=== PATIENT | male | born 1940 | race African-American/Black ===

== ENCOUNTER 2019-03-19 12:57 | Emergency (ER) | payer MEDICAID ==
[~2019-03-19] VITALS: Ht 185.4 cm; Wt 81.6 kg
[~2019-03-19 12:57] MED LIST: NKM
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
[2019-03-19] MEDS ORDERED: Omnipaque-300 100ml vial INJ ONE (13:45)
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
[2019-03-19 15:12] LABS: BASOPHILS % (AUTO) 1.8 % (0.0-2.0); HEMATOCRIT 34.6 % (42.0-52.0); HEMOGLOBIN 11.8 G/DL (14.2-18.0); LYMPHOCYTES % (AUTO) 29.8 % (20.0-45.0); MEAN CORPUSCULAR VOLUME 97 FL (80-99); MONOCYTES % (AUTO) 10.1 % (1.0-10.0); NEUTROPHILS % (AUTO) 55.3 % (45.0-75.0); PLATELET COUNT 193 K/UL (150-450); RED BLOOD COUNT 3.55 M/UL (4.70-6.10); RED CELL DISTRIBUTION WIDTH 11.8 % (11.6-14.8)
[2019-03-19 15:27] LABS: INR 1.1 (0.9-1.1)
[2019-03-19 15:31] LABS: ANION GAP 6 mmol/L (5-15); BLOOD UREA NITROGEN 9 mg/dL (7-18); CALCIUM 8.5 MG/DL (8.5-10.1); CARBON DIOXIDE 28 MMOL/L (21-32); CHLORIDE 107 MMOL/L (98-107); CREATININE 0.9 MG/DL (0.55-1.30); POTASSIUM 3.8 MMOL/L (3.5-5.1); SODIUM 141 MMOL/L (136-145)
[2019-03-19 15:41] LABS: ALANINE AMINOTRANSFERASE 31 U/L (12-78); ALBUMIN 2.9 G/DL (3.4-5.0); ALBUMIN/GLOBULIN RATIO 0.9 (1.0-2.7); ALKALINE PHOSPHATASE 60 U/L (46-116); ASPARTATE AMINO TRANSFERASE 29 U/L (15-37); BILIRUBIN,TOTAL 1.1 MG/DL (0.2-1.0)
[2019-03-19 15:44] LABS: BILIRUBIN,DIRECT 0.2 MG/DL (0.0-0.3)
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
--- NOTE | 2019-03-19 15:49 | Diagnostic Imaging Report ---
Indication: Right knee pain Technique: 3 views of the right knee Comparison: None Findings: Bony alignment is normal. No acute fractures. No dislocations. Surgical hardware is seen in the distal femur as well as evidence of an old healed femoral fracture deformity, incompletely included. There are small superior and inferior pole patellar traction spurs. Dystrophic calcifications are seen in the calf Impression: No acute bony trauma Postsurgical and posttraumatic changes of the femur
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
[2019-03-19 17:05] VITALS: BP 155/79
--- NOTE | 2019-03-19 17:13 | NUR ---
ED Nurse Note: PT A/O x 4, pleasant, no difficulties speaking, no change in speech noted. PT was provided sandwich, juice, and ice water, no difficulties swallowing noted. PT is in semi-velazquez position, calm, cooperative.
[2019-03-19] MEDS ORDERED: IBUPROFEN600 MG ORAL (17:20)
[2019-03-19 17:47] VITALS: BP 147/79
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
== END 2019-03-19 18:00 | disposition home or self-care (01) ==
LOC: EDBD 12:57 → EMR 13:35
DX: S16.1XXA Strain of muscle, fascia and tendon at neck level, initial encounter (principal); S09.90XA Unspecified injury of head, initial encounter; I10 Essential (primary) hypertension; F17.200 Nicotine dependence, unspecified, uncomplicated; M79.604 Pain in right leg; M25.561 Pain in right knee; M25.571 Pain in right ankle and joints of right foot; R07.9 Chest pain, unspecified; R10.9 Unspecified abdominal pain; V13.4XXA Pedal cycle driver injured in collision with car, pick-up truck or van in traffic accident, initial encounter; Y92.410 Unspecified street and highway as the place of occurrence of the external cause
CPT/HCPCS: 36415; 70450; 71260; 72125; 73552; 73562; 73610; 74177; 80053; 82248; 84484; 85025; 85610; 85730; Q9967; Z7502; 99284